=== PATIENT | male | born 1975 | race Hispanic/Latino ===

== ENCOUNTER 2024-10-11 10:19 | Emergency (ER) | payer SELFPAY ==
[~2024-10-11] VITALS: Ht 180.3 cm; Wt 99.8 kg
--- NOTE | 2024-10-11 10:36 | ERN ---
General Chief Complaint: FOOT INJURY/PAIN Stated Complaint: PAIN ON BOTH FEET Time Seen by MD: 10:22 History of Present Illness Initial Comments 49-year-old male who presents for bilateral feet pain, burning sensation, cramping, increasing throughout the day. He has felt this for months but is increasing in severity recently. In the past he was told he had type 2 diabetes and was briefly on metformin but is currently not taking any medications. He denies injury. No skin texture changes. No fevers or systemic illness. ROS Dictation CONSTITUTIONAL: No chills, no fever, no weakness, no diaphoresis, no malaise. HEAD/FACE: No signs of trauma. EENT: No eye pain, no blurred vision, no tearing, no double vision, no ear pain, no ear discharge, no nose pain, no nasal congestion, no throat pain, no throat swelling, no mouth pain. RESPIRATORY: No cough, no orthopnea, no SOB, no stridor, no wheezing. CARDIOVASCULAR: No chest pain, no edema, no palpitations, no syncope. GASTROINTESTINAL/ABDOMINAL: No abdominal pain, no constipation, no diarrhea, no nausea, no vomiting. GENITOURINARY: No abnormal discharge, no dysuria, no frequent urination, no hematuria. No complaints of pain in the genitals. MUSCULOSKELETAL: Bilateral feet pain INTEGUMENTARY: No change in color, no change in hair/nails, no dryness, no lesion, no lumps, no rash. NEUROLOGICAL/PSYCH: No anxiety, not depressed, no emotional problem, no headache, no numbness, no pre-existing deficit, no history of seizures, no tremors, no weakness. HEMATOLOGIC/LYMPHATIC: Not anemic, no history of blood clots, no apparent bleeding, no bruising, glands not swollen. All Systems Negative, Except as Noted. Physical Exam Physical Exam Dictation VITAL SIGNS: Reviewed. GENERAL APPEARANCE: Alert, oriented x3, no acute distress. HEAD AND FACE: Non-traumatic. EYES: PERRL, pink conjunctivas, eyelid no trauma, anterior chamber clear. EARS: Pinnas intact and no signs of trauma or erythema. Ear canals clear and no discharge. TMs no erythema. NOSE: No discharge, no bleeding. OROPHARYNX: Mouth normal, teeth no caries, tongue pink. Pharynx clear, no erythema. Tonsils no exudates, no abscesses noted. Mucous membrane moist. NECK: Supple, non-tender, no thyromegaly, no masses, no JVD, no bruits. BREAST: Deferred. CHEST: No tenderness, no crepitus, no paradoxical movement, no retractions. LUNGS: Clear, well-ventilated, symmetric, no rales, no wheezing, no rhonchi, no stridor, good breath sounds bilaterally. HEART: Regular rate, regular rhythm, no murmur, no gallops. VASCULAR: No peripheral edema. ABDOMEN: Soft, positive bowel sounds, nondistended, no guarding, nontender, no rebound, no masses no hepatomegaly, no splenomegaly, no Street's sign, no hernias. RECTAL: Deferred. GENITAL: Deferred. NEUROLOGICAL: Normal speech, gross motor function intact, gross sensory function intact. MUSCULOSKELETAL: Neck nontender, full range of motion, back nontender, full range of motion. EXTREMITIES: Nontender, full range of motion. SKIN: Color pink, dry, no turgor, no rash, no lacerations, no abrasions, no contusions. LYMPHATICS: Deferred. Results Laboratory and Microbiology Lab and Micro Result Laboratory Tests Test 10/11/24 10:53 White Blood Count 6.9 K/uL (4.8-10.8) Red Blood Count 5.28 MIL/uL (4.50-6.20) Hemoglobin 15.3 g/dL (14.0-18.0) Hematocrit 46.4 % (42-54) Mean Corpuscular Volume 87.9 fL (79-99) Mean Corpuscular Hemoglobin 29.0 pg (27.0-33.0) Mean Corpuscular Hemoglobin Concent 33.0 g/dL (32.0-36.0) Red Cell Distribution Width 16.3 % (11.0-15.5) H Platelet Count 230 K/uL (130-400) Mean Platelet Volume 11.3 fL (7.5-10.5) H Immature Granulocyte % (Auto) 0.3 % (0-1) Neutrophils (%) (Auto) 57.1 % (40.0-77.0) Lymphocytes (%) (Auto) 32.5 % (21.0-51.0) Monocytes (%) (Auto) 7.4 % (3.0-13.0) Eosinophils (%) (Auto) 2.3 % (0.0-8.0) Basophils (%) (Auto) 0.4 % (0.0-5.0) Neutrophils # (Auto) 4.0 K/uL (1.8-7.7) Lymphocytes # (Auto) 2.3 K/uL (1.0-4.8) Monocytes # (Auto) 0.5 K/uL (0.1-1.0) Eosinophils # (Auto) 0.16 K/uL (0.00-0.70) Basophils # (Auto) 0.03 K/uL (0.00-0.20) Absolute Immature Granulocyte (auto 0.02 K/uL (0-1) Nucleated Red Blood Cells 0.0 % (0.0-0.19) Sodium Level 136 mmol/L (136-145) Potassium Level 4.3 mmol/L (3.5-5.1) Chloride Level 101 mmol/L (101-111) Carbon Dioxide Level 30 mmol/L (21-32) Blood Urea Nitrogen 7 mg/dL (7-18) Creatinine 0.8 mg/dL (0.5-1.3) Glomerular Filtration Rate Calc 109 mL/min (>90) Random Glucose 119 mg/dL (70-105) H Hemoglobin A1c 7.1 % (4.0-6.0) H Estimated Average Glucose (eAG) 157 mg/dL (70-126) H Total Calcium 9.4 mg/dL (8.5-10.1) C-Reactive Protein, Quantitative 0.60 mg/L (0.5-3.0) MDM CC: Bilateral foot injury/ tingling Historian: Patient Comorbidities: Diabetes Limitations by social determinants of health: Uninsured Differential diagnosis: Peripheral neuropathy, infection, other. Vital signs: Stable, remained stable in the ER. Labs ( independently ordered and interpreted by me ): No leukocytosis or anemia. CRP is normal. Metabolic panel is normal. A1c 7.1 Patient's symptoms are consistent with diabetic nephropathy likely due to the uncontrolled glucose. We will start on metformin, gabapentin recommend PCP follow up. ED Course Orders Procedure Category Date Status Time Cbc With Differential LAB 10/11/24 Complete 10:36 Basic Metabolic Panel LAB 10/11/24 Complete 10:36 Hemoglobin A1c LAB 10/11/24 Complete 10:36 Crp Quantitative LAB 10/11/24 Complete 10:36 Vital Signs Date Time Temp Pulse Resp B/P (MAP) Pulse Ox O2 Delivery O2 Flow Rate FiO2 10/11/24 11:15 98.2 70 20 124/89 99 Room Air* 0 21 10/11/24 10:32 98.2 70 20 124/89 99 Room Air DX & DISP Disposition: Discharge Departure Impression: Primary Impression: Diabetes mellitus Additional Impression: Peripheral neuropathy Condition: Stable Scripts Gabapentin (Gabapentin) 100 Mg Capsule 1 CAP PO TID for 30 Days, #90 CAP 0 Refills Prov: MINNIE BROWN DO 10/11/24 Metformin HCl (Metformin HCl) 1,000 Mg Tablet 1 TAB PO BID for 90 Days, #180 TAB 0 Refills Prov: MINNIE BROWN DO 10/11/24 Additional Instructions: You have diabetes. Your feet pain is consistent with diabetic nephropathy. Your hemoglobin A1c is 7.1. The rest of your labs (CBC, BMP, CRP) is unremarkable. I have prescribed metformin. Take this twice per day. I have prescribed gabapentin, which is a pain medication that works for diabetic nephropathy. You can take this 3 times a day for the 1st week. After that you can increase it to two tabs 3 times per day. You need to follow up with the primary doctor. You have diabetes. This is a chronic disease that requires continuous management. Please return to the emergency department if you have any concerns. Referrals: SELF,REFERRAL (PCP) MINNIE BROWN DO Oct 11, 2024 10:36
[2024-10-11 11:11] LABS: CREATININE 0.8 mg/dL (0.5-1.3); POTASSIUM 4.3 mmol/L (3.5-5.1)
[2024-10-11 11:21] LABS: BASOPHILS # (AUTO) 0.03 K/uL (0.00-0.20); BASOPHILS % (AUTO) 0.4 % (0.0-5.0); EOSINOPHILS # (AUTO) 0.16 K/uL (0.00-0.70); EOSINOPHILS % (AUTO) 2.3 % (0.0-8.0); HEMATOCRIT 46.4 % (42-54); IMMATURE GRANULOCYTE ABSOLUTE 0.02 K/uL (0-1); LYMPHOCYTES # (AUTO) 2.3 K/uL (1.0-4.8); LYMPHOCYTES % (AUTO) 32.5 % (21.0-51.0); MEAN CORPUSCULAR VOLUME 87.9 fL (79-99); MONOCYTES # (AUTO) 0.5 K/uL (0.1-1.0); MONOCYTES % (AUTO) 7.4 % (3.0-13.0); NEUTROPHILS % (AUTO) 57.1 % (40.0-77.0); PLATELET COUNT (AUTO) 230 K/uL (130-400); RED BLOOD CELL COUNT(AUTO) 5.28 MIL/uL (4.50-6.20); RED CELL DISTRIBUTION WIDTH 16.3 % (11.0-15.5); WHITE BLOOD COUNT (AUTO) 6.9 K/uL (4.8-10.8)
[2024-10-11 11:38] LABS: HEMOGLOBIN A1C 7.1 % (4.0-6.0)
[2024-10-11] MEDS ORDERED: METF-446 PO (11:43)
[2024-10-11] MEDS ORDERED: GABA-529 PO (11:43)
[2024-10-11 12:51] VITALS: BP 125/86; PULSE 76; RESP 20; TEMP 98.2; O2SAT 100
== END 2024-10-11 12:54 | disposition home or self-care (01) ==
LOC: EDH 10:19
DX: E11.42 Type 2 diabetes mellitus with diabetic polyneuropathy (principal); Z79.84 Long term (current) use of oral hypoglycemic drugs
CPT/HCPCS: 36415; 80048; 83036; 85025; 86140; 99283

== ENCOUNTER 2024-11-09 09:10 | Emergency (ER) | payer BC ==
[~2024-11-09] VITALS: Ht 180.3 cm; Wt 93.4 kg
[~2024-11-09 09:10] MED LIST: GABA-529 PO; METF-446 PO
--- NOTE | 2024-11-09 09:46 | ERN ---
ED Note History of Present Illness Stated Complaint: FEET PAIN Chief Complaint: FOOT INJURY/PAIN Time Seen by MD: 09:21 Dictation: The patient is a 49-year-old male with a medical history of type 2 diabetes mellitus who presented to the emergency department due to worsening bilateral foot pain radiating to legs over the past three days. He had previously visited the emergency room in September with the similar complaints, where his A1c was recorded at 7.1%. At that time, he was diagnosed with peripheral neuropathy and prescribed metformin and gabapentin, with instructions to follow up with his primary care physician for further assessment. Recently, he attended a next level clinic, where laboratory tests returned negative results; the provider noted that his A1c was 6.5% two days ago. Despite adhering to his medication regimen, the patient reports that the pain persists and is described as a needle-like sensation, occurring throughout the day but intensifying at night. He describes the pain as unbearable and has observed episodes of pallor and cyanosis in his legs. The patient is unable to walk without experiencing pain and has been taking gabapentin at a dosage of 100 mg three times daily. Allergies: Coded Allergies: No Known Drug Allergies (Unverified Allergy, Unknown, 11/09/24) Home Meds Active Scripts Gabapentin (Gabapentin) 100 Mg Capsule, 100 MG PO TID for 14 Days, #84 CAP Take 2 tablets 3 times a day Prov:ANI BOWLING MD 11/09/24 Gabapentin (Gabapentin) 100 Mg Capsule, 1 CAP PO TID for 30 Days, #90 CAP 0 Refills Prov:MINNIE BROWN DO 10/11/24 Metformin HCl (Metformin HCl) 1,000 Mg Tablet, 1 TAB PO BID for 90 Days, #180 TAB 0 Refills Prov:MINNIE BROWN DO 10/11/24 Past Medical History Past Medical History: Diabetes-Type II Surgical History: None Review of System Dictation REVIEW OF SYSTEMS CONSTITUTIONAL: Denies fevers, chills, or night sweats. No unintentional weight loss reported. NEUROLOGICAL: Denies headache, amaurosis fugax, motor weakness, sensory d eficit, vertigo/spinning sensation, gait abnormalities, or tremors. ENT: No hearing loss, otalgia, otorrhea, rhinitis, rhinorrhea, hoarseness, or sore throat. CARDIOVASCULAR: Denies any exertional angina, dyspnea on exertion, orthopnea, paroxysmal nocturnal dyspnea, palpitations, life-threatening arrhythmias, claudication. PULMONARY: Denies any shortness of breath, cough, phlegm/sputum, hemoptysis, pleuritic chest pain. SLEEP: Denies morning headaches, daytime somnolence or napping. Denies difficulty falling asleep, staying asleep, waking from sleep. Denies knowledge of snoring. GASTROINTESTINAL: Denies any type of dysphagia to either liquids or solids. Denies nausea, vomiting, pyrosis, early satiety, abdominal pain, diarrhea, constipation, or changes in stool consistency or caliber. Denies coffee-ground emesis, hematemesis, hematochezia, or melanotic stools. GENITOURINARY: Denies frequency, urgency, nocturia, hematuria or incontinence (Storage/Irritative symptoms.) Low urinary stream, straining to void, urinary intermittency or hesitancy, splitting of the voiding stream, terminal dribbling. ENDOCRINOLOGIC: Denies polyuria, polydipsia, polyphagia or heat/cold intolerances. HEMATOLOGIC: Denies thrombophilia/previous clots, or coagulopathy/bleeding disorders. ONCOLOGIC: Denies personal history of malignancy. DERMATOLOGIC: C/o bilateral feet pain radiating to legs, Denies rashes or pruritus. PSYCHIATRIC: Denies any suicidal or homicidal ideation. Denies hallucinations. Initial Vital Sign VS Vital Signs Date Time Temp Pulse Resp B/P (MAP) Pulse Ox O2 Delivery O2 Flow Rate FiO2 11/09/24 09:11 98.1 77 14 111/83 100 Room Air 11/09/24 11:15 0 21 Physical Exam Dictation PHYSICAL EXAM GENERAL APPEARANCE: The patient is awake, alert, and oriented, in no acute cardiopulmonary distress. NEUROLOGICAL: Cranial nerves II-XII grossly intact. Motor is 5/5 in bilateral upper and lower extremities proximal to distal. No sensory deficits. HEENT: Face is symmetric. Pupils are equal and reactive. Extraocular movements are intact. NECK: Supple. No JVD. No thyromegaly. No submental, submandibular, pre- /postauricular, occipital or supraclavicular lymphadenopathy. CHEST: Normal chest expansion. No Telemetry. LUNGS: Absence of any rales, rhonchi or any wheezing. CARDIOVASCULAR: Regular. S1 and S2 normal. No appreciable rubs, murmurs or gallops. ABDOMEN: Soft, nontender, and nondistended. There is no rebound, voluntary guarding, or rigidity. : Deferred. No Dc. EXTREMITIES: Non-edematous and not cyanotic. No clubbing. Good capillary refill. SKIN: No skin breakdown. Results (Laboratory/Radiology) X-RAY Comment: [facility] [address] [place] [id number] IMAGING REPORT Signed PATIENT: JOSÉ LUIS SANTIAGO MR#: [id number] : 1975 SEX: M AGE: 49 LOCATION: ED ORDER 5 STATUS: REG ER REPORT#: [id number] SERVICE 2 REASON: b/l foot pain ORDERING PHYSICIAN: ANI BOWLING MD PROCEDURE: FT 2VW LT - FOOT LIMITED 2VWS LT FOOT LIMITED 2VWS LT HISTORY: Pain COMPARISON: None TECHNIQUE: 2 images of left foot were obtained. FINDINGS: There is no acute displaced fracture or dislocation. There is soft tissue swelling. Vascular calcifications are seen. Degenerative changes are seen. IMPRESSION: 1. Findings as described above. DICTATED BY: JUAN PABLO WARD MD DATE: 11/09/24 1034 ELECTRONICALLY SIGNED BY: JUAN PABLO WARD MD DATE: 11/09/24 1037 [facility] [address] [place] [address] [id number] IMAGING REPORT Signed PATIENT: JOSÉ LUIS SANTIAGO MR#: [id number] : 1975 SEX: M AGE: 49 LOCATION: EDH ORDER 5 STATUS: REG ER [facility] REPORT#: [id number] SERVICE 2 REASON: b/l foot pain ORDERING PHYSICIAN: ANI BOWLING MD PROCEDURE: FT 2VW RT - FOOT LIMITED 2VWS RT FOOT LIMITED 2VWS RT HISTORY: Bilateral foot pain COMPARISON: None TECHNIQUE: 2 images of right foot were obtained. FINDINGS: There is no acute displaced fracture or dislocation. There is soft tissue swelling. Vascular calcifications are seen. Degenerative changes are seen. IMPRESSION: 1. Findings as described above. DICTATED BY: JUAN PABLO WARD MD DATE: 11/09/24 1034 ELECTRONICALLY SIGNED BY: JUAN PABLO WARD MD DATE: 11/09/24 1040 ED Course ED Course Orders Procedure Category Date Status Time Ankle-Brachial CPOE 11/09/24 Transmitted Index(Norma) 09:43 Foot Limited 2vws Lt RAD 11/09/24 Resulted 09:43 Foot Limited 2vws Rt RAD 11/09/24 Resulted 09:43 Vital Signs Date Time Temp Pulse Resp B/P (MAP) Pulse Ox O2 Delivery O2 Flow Rate FiO2 11/09/24 11:15 98.1 77 16 110/80 98 Room Air* 0 21 11/09/24 09:11 98.1 77 14 111/83 100 Room Air 09:30 The patient was assessed in Emergency Department triage room 2. He does not exhibit any signs of cardiopulmonary distress. He is seated comfortably in a chair and is providing a comprehensive medical history regarding his current symptoms. He appears hemodynamically stable, with a temperature of 98.1F, a pulse rate of 77 beats per minute, a respiratory rate of 14 breaths per minute, and a blood pressure reading of 111/83 mmHg. The patient recently underwent laboratory tests at an outpatient facility, which, according to him, did not reveal any significant abnormalities; his hemoglobin A1c level was recorded at 6.5%. At this time, we do not believe that further laboratory tests are necessary and strongly suspect that the patient may be experiencing symptoms of peripheral neuropathy. Considering his history of chronic pain along with episodes of pallor and cyanosis in feet, we will perform an Ankle-Brachial Index (NORMA) test to exclude any arterial insufficiency and will also obtain foot x- rays. Based on the results of these investigations, we will determine whether the patient requires emergency treatment or inpatient hospitalization. We will continue to monitor the patient closely. 10:50 The patient underwent a reassessment in Emergency Department room 5. The foot x-ray indicated soft tissue swelling but no any acute abnormalities. Arterial Doppler indicated strong dorsales pedis and posterior tibial pulses. At this juncture, it is believed that the patient's symptoms are attributable to peripheral neuropathy and mild venous insufficiency. The patient was instructed to increase the gabapentin dosage to 200 mg three times daily and to utilize Tylenol or NSAIDs as necessary for pain management. 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 The patient expressed understanding of the instructions provided. He is deemed stable for discharge and will require follow-up care as an outpatient. Medical Decision Making [facility] Differential diagnosis: Peripheral neuropathy, diabetes mellitus, mild venous insufficiency Rationale: Tests considered and ordered secondary to shared decision making include: Previous outside records reviewed: Old ER visits. Risk of complication and/or morbidity or mortality of patient management: None Medications-Per medication reconciliation Need for hospitalization: Patient does not meet criteria for hospitalization. Need for emergency major/minor surgery: No There are no social concerns with this patient. Prescription drug management Prescriptions will include symptomatic care Patient's prior external medical records from other ER visits were reviewed by me as indicated. Prior testing and results from previous visits were reviewed. Prior tests were taken into account with medical decision making and resource utilization, independent historian/historians were used to obtain complete medical history. I independently interpreted the test that were performed, results were reviewed by me and considered findings on radiology if ordered. DX & DISP Disposition: Discharge Departure Impression: Primary Impression: Peripheral neuropathy Additional Impressions: Diabetes mellitus, Venous (peripheral) insufficiency Condition: Stable Scripts Gabapentin (Gabapentin) 100 Mg Capsule 100 MG PO TID for 14 Days, #84 CAP Take 2 tablets 3 times a day Prov: ANI BOWLING MD 11/09/24 Additional Instructions: Start taking gabapentin at a dosage of 200 mg three times daily for the management of peripheral neuropathy resulting from diabetes mellitus. Take Tylenol or NSAIDs as required for alleviation of foot pain. In cases of valvular insufficiency, it is advisable to utilize compression stockings to mitigate discomfort. Foot care: Inspect your feet daily for blisters, cuts, or calluses, even small ones. Wash feet regularly with warm water and mild soap, dry thoroughly, especially between toes. Moisturize feet with lotion, avoiding areas between toes. Trim toenails carefully, straight across, and file rough edges. Wear well-fitting shoes with good support and avoid high heels. Exercise: Engage in regular, low-impact exercises like walking, swimming, or gentle stretching to improve muscle strength and flexibility. Lifestyle modifications: Maintain a balanced diet rich in fruits, vegetables, and whole grains. Visit the nearest emergency department or call 911 should the symptoms do improve or gets worse over the time. Referrals: SELF,REFERRAL (PCP) I have reviewed the case, and I agree with, Diagnosis and Plan I have examined patient, & reviewed all documents, & agreed W/ the Diagnosis, and Plan ATTESTATION BY PHYSICIAN I have seen and examined the patient. I reviewed the documentation, medical decision making, and treatment plan as noted by the resident provider above. I agree with the findings and plan of care. Bam Gupta MD, MANALI MD Nov 09, 2024 09:46 MINNIE BROWN DO Nov 09, 2024 13:59
--- NOTE | 2024-11-09 10:37 | HMCIMG ---
FOOT LIMITED 2VWS LT HISTORY: Pain COMPARISON: None TECHNIQUE: 2 images of left foot were obtained. FINDINGS: There is no acute displaced fracture or dislocation. There is soft tissue swelling. Vascular calcifications are seen. Degenerative changes are seen. IMPRESSION: 1. Findings as described above.
--- NOTE | 2024-11-09 10:40 | HMCIMG ---
FOOT LIMITED 2VWS RT HISTORY: Bilateral foot pain COMPARISON: None TECHNIQUE: 2 images of right foot were obtained. FINDINGS: There is no acute displaced fracture or dislocation. There is soft tissue swelling. Vascular calcifications are seen. Degenerative changes are seen. IMPRESSION: 1. Findings as described above.
[2024-11-09] MEDS ORDERED: GABA-529 PO (11:04)
[2024-11-09 11:15] VITALS: BP 110/80; PULSE 77; RESP 16; TEMP 98.1; O2SAT 98
== END 2024-11-09 11:25 | disposition home or self-care (01) ==
LOC: EDH 09:10
DX: E11.42 Type 2 diabetes mellitus with diabetic polyneuropathy (principal); I87.2 Venous insufficiency (chronic) (peripheral); Z79.84 Long term (current) use of oral hypoglycemic drugs; Z79.899 Other long term (current) drug therapy
CPT/HCPCS: 73620; 99283